=== PATIENT | male | born 1950 ===

== ENCOUNTER 2016-07-14 11:45 | Outpatient (CLI) | payer MEDICARE, OTHER ==
[~2016-07-14] VITALS: Ht 177.8 cm; Wt 96.4 kg
--- NOTE | ~2016-07-14 | HEMODYNAMI ---
PATIENT:SALLY DIETZ MEDICAL RECORD: [id number] : 48 LOCATION:D.CAT ADMISSION DATE: 07/14/16 Generatedon:07/14/201613:58 Patient name: SALLY DIETZ Patient #: [id number] SSN: : 1950 Date of study: 07/14/2016 Page: Of Hemodynamic Procedure Report Patient Data Patient Demographics Procedure consent was obtained First Name: SALLY Gender: Male Last Name: J LUIS : 1950 Middle Initial: M Age: 65 year(s) Patient #: [id number] Race: Unknown Additional ID: [id number] Contact details [address]: [address] [place] [address] State: [place] City: [place] Zip code: [address] Past Medical History Allergies Allergen Reaction Date Comments Reported Codeine 07/14/2016 Admission Admission Data Admission Date: 07/14/2016 Admission Time: 11:45 Lab Results Lab Result Date: 07/14/2016 Lab Result Time: 0:00 Biochemistry Name Units Result Min Max Creatinine mg/dl 1.2 --(---*)-- 0.6 1.3 CBC Name Units Result Min Max Hemoglobin g/dl 15.5 --(-*--)-- 13.5 17.5 Procedure Procedure Types Cath Procedure Diagnostic Procedure [facility] w/Coronaries Miscellaneous Procedures Moderate Sedation up to 15 minutes Procedure Description Procedure Date Procedure Date: 07/14/2016 Procedure Start Time: 13:48 Procedure End Time: 13:58 Procedure Staff Name Function Jose Spencer MD Performing Physician Kyle Pyle RT Scrub Serafin Gannon RN Nurse Jovita Diop RT Monitor Procedure Data Cath Procedure Fluoroscopy Diagnostic fluoroscopy Total fluoroscopy Time: 1.8 time: 1.8 min min Diagnostic fluoroscopy Total fluoroscopy dose: 487 dose: 487 mGy mGy Contrast Material Contrast Material Type Amount (ml) Isovue 300 72 Entry Location Entry Primary Successful Side Size Upsize Upsize Entry Closure Succes sful Closure Location (Fr) 1 (Fr) 2 (Fr) Remarks Device Remarks Femoral Right 5 Fr Exoseal artery Estimated blood loss: 5 ml Diagnostic catheters Device Type Used For End Catheter Placement Cordis 5Fr JL 4.0 Left Coronary Catheter (MP) Angiography Cordis 5Fr 3DRC Catheter Right Coronary (MP) Angiography Cordis 5Fr Pigtail LV Angiography Catheter (MP) Procedure Complications No complications Procedure Medications Medication Administration Route Dosage Oxygen NC 2 l/min Heparin Flush Bag added to field 2 bags (1000units/500ml NS) 0.9% NaCl I.V. 100 ml/hr Fentanyl I.V. 50 mcg Versed I.V. 1 mg Fentanyl I.V. 50 mcg Versed I.V. 1 mg Hemodynamics Rest HGB: 15.5 (g/dl) Heart Rate: 82 (bpm) Pressure Samples Time Site Value (mmHg) Purpose Heart Use Rate(bpm) 13:53 LV 130/-8,14 EDP 61 13:54 LV 124/5,12 EDP 79 Gradients Valve Time Site Site Mean SEP/DFP Peak To Heart Use 1 2 (mmHg) (sec/min) Peak Rate (mmHg) (bpm) Aortic 13:54 LV AO 74 Snapshots Pre Cath Intra NCS Post Cath Vital Signs Time Heart Resp SPO2 etCO2 UP1iyxq NIBP (mmHg) Rhythm Pain Sedation Rate (ipm) (%) (mmHg) (mmHg) Status Level (bpm) 13:37:24 78 17 95 0 0 136/79(111) NSR 0 (11) 10(A) , No pain 13:41:38 79 16 93 0 0 130/75(101) NSR 0 (11) 10(A) , No pain 13:45:47 77 18 95 0 0 131/77(106) NSR 0 (11) 10(A) , No pain 13:49:59 75 16 94 0 0 133/77(115) NSR 0 (11) 9(A) , No pain 13:54:11 77 17 94 0 0 121/72(99) NSR 0 (11) 9(A) , No pain 13:56:57 76 16 96 0 0 123/67(99) NSR 0 (11) 9(A) , No pain Medications Time Medication Route Dose Verified Delivered Reason Notes Effec tiveness by by 13:40:59 Oxygen NC 2 Serafin Serafin Per l/min Jagdeep Gannon RN physician RN 13:41:07 Heparin Flush added 2 Serafin Serafin used for Bag to bags Jagdeep Gannon RN procedure (1000units/500ml field RN NS) 13:41:18 0.9% NaCl I.V. 100 Serafin Serafin Per ml/hr Jagdeep Gannon RN physician RN 13:44:38 Fentanyl I.V. 50 Serafin Serafin for [facility] [place] Jagdeep Gannon RN sedation RN 13:44:47 Versed I.V. 1 mg Serafin Serafin for Jagdeep Gannon RN sedation RN 13:47:06 Fentanyl I.V. 50 Serafin Serafin for [facility] [place] Jagdeep Gannon RN sedation RN 13:47:09 Versed I.V. 1 mg Serafin Serafin for Jagdeep Gannon RN sedation tile mason Log Time Note 13:15:48 Serafin Gannon RN sent for patient. Start room use. 13:25:49 Time tracking: Regular hours 13:25:54 Plan of Care:Hemodynamics will remain stable., Cardiac rhythm will remain stable., Comfort level will be maintained., Respiratory function will remain adequate., Patient/ family verbilizes understanding of procedure., Procedure tolerated without complication., Recovers from procedure without complications.. 13:30:07 Patient received from Pre/Post Procedure Room to [facility] 1 Alert and oriented. Tansferred to table in Supine position. 13:30:08 Warm blankets applied, and tomasa hugger turned on for patient comfort. 13:30:08 Correct patient and procedure confirmed by team. 13:30:09 Signed procedure consent form obtained from patient. 13:30:10 ECG and BP/O2 sat monitors applied to patient. 13:30:11 Full Disclosure recording started 13:36:19 Vital chart was started 13:38:58 Baseline sample Acquired. 13:39:01 Rhythm: sinus rhythm 13:39:17 H&P Date Dictated: 06/22/2016 Within 30 days and on chart., H&P Addendum completed by physician on day of procedure. (MUST COMPLETE FOR ALL OUTPATIENTS). 13:39:18 Pre-procedure instructions explained to patient. 13:39:18 Pre-op teaching completed and patient verbalized understanding. 13:39:19 Family in waiting room. 13:39:21 Patient NPO since Midnight. 13:39:34 Patient allergic to Codeine 13:39:37 Is the patient allergic to Iodine/contrast media? No. 13:39:40 Is patient on blood thinner?No 13:39:42 Patient diabetic? Yes. 13:39:53 If diabetic: On Metformin? Yes 13:39:56 If on Metformin: Last Dose? 07/13/2016 13:39:59 Previous problem with sedation/anesthesia? No ? 13:40:01 Snore? Yes 13:40:02 Sleep apnea? No 13:40:03 Deviated septum? No 13:40:08 Opens mouth fully? Yes 13:40:09 Sticks out tongue? Yes 13:40:16 Airway obstruction? No ? 13:40:20 Dentures? Yes In 13:40:40 Pre procedure: right dorsailis pedis pulse 2+ Normal; easily identifiable; not easily obliterated 13:40:45 Patient pain scale 0/10 ?. 13:40:51 IV patent on arrival in left hand with 0.9% NaCl at KVO. 13:40:59 Oxygen 2 l/min NC was administered by Serafin Gannon RN; Per physician; 13:41:07 Heparin Flush Bag (1000units/500ml NS) 2 bags added to field was administered by Serafin Gannon RN; used for procedure; 13:41:13 Lab Result : Hemoglobin 15.5 g/dl 13:41:13 Lab Result : Creatinine 1.2 mg/dl 13:41:17 Lab results completed and on chart. 13:41:18 0.9% NaCl 100 ml/hr I.V. was administered by Serafin Gannon RN; Per physician; 13:41:21 Right groin area was prepped with chlora-prep and draped in sterile fashion 13:41:23 Alarms reviewed by R. N. 13:41:23 Sharps counted by scrub and verified by R.N. 13:41:58 Use device set Femoral Dx 13:41:59 Acist Syringe opened to sterile field. 13:41:59 Bag Decanter opened to sterile field. 13:42:00 Medline Cath Pack opened to sterile field. 13:42:00 Terumo 5Fr [place] Sheath opened to sterile field. 13:42:01 St Gibran 260cm J .035 wire opened to sterile field. 13:42:02 Acist Hand Control opened to sterile field. 13:42:02 Acist Manifold opened to sterile field. 13:42:03 Diagnostic Infinity 5Fr Multipack catheter opened to sterile field. 13:42:03 Tegaderm 4 x 4 opened to sterile field. 13:43:36 Final Timeout: patient, procedure, and site verified with staff and physician. All members of the team are in agreement. 13:43:39 Right groin site verified by team. 13:43:42 Physical assessment completed. ASA score P 2 - A patient with mild systemic disease as per Jose Spencer MD. 13:43:46 Sedation plan: IV Moderate Sedation Versed, Fentanyl 13:44:38 Fentanyl 50 mcg I.V. was administered by Serafin Gannon RN; for sedation; 13:44:47 Versed 1 mg I.V. was administered by Serafin Gannon RN; for sedation; 13:47:06 Fentanyl 50 mcg I.V. was administered by Serafin Gannon RN; for sedation; 13:47:09 Versed 1 mg I.V. was administered by Serafin Gannon RN; for sedation; 13:48:14 Procedure started. 13:48:17 Local anesthetic to right femoral artery with Lidocaine 2% by Jose Spencer MD.INITIAL ACCESS ONLY 13:48:18 Zero performed for pressure channel P1 13:48:29 A 5 Fr sheath was inserted into the Right Femoral artery 13:48:50 A Cordis 5Fr JL 4.0 Catheter (MP) was advanced over the wire and used for Left Coronary Angiography. 13:50:32 Catheter removed. 13:51:43 A Cordis 5Fr 3DRC Catheter (MP) was advanced over the wire and used for Right Coronary Angiography. 13:51:56 Catheter removed. 13:52:10 A Cordis 5Fr Pigtail Catheter (MP) was advanced over the wire and used for LV Angiography. 13:53:18 LV gram done using LOPEZ 13:53:45 LV hemodynamics recorded. 13:53:47 Injector settings: Ml/sec: 10, Volume: 20, 13:53:57 EF : 55 % 13:54:35 Catheter removed. 13:54:43 Sheath removed intact; hemostasis achieved with Exoseal to the Right Femoral artery. 13:54:45 Procedure ended.(Physican Out) 13:54:56 Fluoroscopy time 01.80 minutes. 13:55:00 Fluoroscopy dose: 487 mGy 13:55:00 Flurop Dose total: 487 13:55:08 Contrast amount:Isovue 300 72ml. 13:55:10 Sharps counted by scrub and verified by R.N. 13:55:13 Insertion/operative site no bleeding no hematoma. 13:55:15 Post-op/insertion site Right Femoral artery dressed using a 4 x 4 and Tegaderm. 13:55:19 Post right femoral artery:stable, clean and dry 13:55:21 Post Procedure Pulses reassessed and unchanged 13:55:24 Post-procedure physical assessment completed. ASA score P 2 - A patient with mild systemic disease as per Jose Spencer MD. 13:55:26 Post procedure rhythm: unchanged. 13:55:29 Estimated blood loss: 5 ml 13:55:31 Post procedure instruction explained to patient.Patient verbalizes understanding. 13:55:31 Patient needs reinforcement of post procedure teaching. 13:55:45 Procedure type changed to Cath procedure, Diagnostic procedure, LHC, LHC w/Coronaries, Miscellaneous Procedures, Moderate Sedation up to 15 minutes 13:55:52 Procedure Complication : No complications 13:55:54 See physician's report for complete and final results. 13:56:13 Cordis 5Fr Exoseal opened to sterile field. 13:56:27 Procedure and supply charges have been captured, reviewed, submitted and are correct. 13:57:57 Vital chart was stopped 13:57:59 Report given to Pre/Post Procedure Room. 13:58:02 Patient transfered to Pre/Post Procedure Room with Stretcher. 13:58:13 Procedure ended. 13:58:13 Full Disclosure recording stopped 13:58:16 End room use (Document Last) Device Usage Item Name Manufacture Quantity Catalog Hospital Part Current Minimal Lo t# / Number Charge Number Stock Stock Serial# Code Acist Acist 1 [id number] [id number] [id number] 20 Syringe [employer] Bag Microtek 1 2002S 023018 31093 105136 5 Decanter [employer] Medline Cardinal 1 [id number] 475209 62724 477305 5 Cath [employer] Terumo 5Fr Terumo 1 [id number] 820270 919808 513848 [address] St Gibran 1 846802 459178 765764 068666 30 260cm J .035 wire Acist Hand Acist 1 20521 924340 006930 252965 5 Control [employer] Inc Acist Acist 1 34837 570156 589289 542555 5 Manifold [employer] Inc Diagnostic Cardinal 1 [id number] 492733 54658 285136 30 Inf[employer] 5Fr Multipack catheter Tegaderm 4 3M 1 1626W 598881 652914 811666 5 x 4 Cordis 5Fr Cardinal 1 686134 5 JL 4.0 Health Catheter (MP) Cordis 5Fr Cardinal 1 741084 5 3DRC Health Catheter (MP) Cordis 5Fr Cardinal 1 [id number] 5 Pigtail Health Catheter (MP) Cordis 5Fr Cardinal 1 EX500 393529 289938 112020 10 [employer] Signature Audit Bryan Stage Time Signature Unsigned Intra-Procedure 07/14/2016 Jovita 1:58:30 PM Counts RT(R) Signatures Monitor : Jovita Signature : Counts RT Date : Time : [address] [address]
[~2016-07-14 11:45] MED LIST: DIOVAN320 MG PO; GLIMEPIRIDE2 MG PO; MYSOLINE 50 MG50 MG PO; NORVASC10 MG PO; PROPRANOLOL HCL60 M1 PO
[2016-07-14] MEDS ORDERED: HYDROCHLOROTH12.5 M1 PO (12:16)
[2016-07-14] MEDS ORDERED: GLUCOPHAGE1000 MG PO (12:16)
[2016-07-14 12:23] VITALS: BP 138/77; Ht 177.8 cm; Wt 96.4 kg
[2016-07-14 12:34] LABS: BASOPHILS 0.2 % (0-2); EOSINOPHILS 4.1 % (0-7); HEMATOCRIT 44.9 % (42.0-54.0); HEMOGLOBIN 15.5 g/dL (13.5-17.5); IMMATURE GRANULOCYTES 0.2 % (0-5); LYMPHOCYTES 27.4 % (15-50); MCH 31.7 pg (26.0-34.0); MCHC 34.5 g/dL (31.0-37.0); MCV 91.8 fL (80.0-100.0); MONOCYTES 7.3 % (2-11); NEUTROPHILS 60.8 % (40-80); PLATELET COUNT 153 10x3/uL (130-400); RBC 4.89 10x6/uL (4.20-6.10); RDW 12.5 % (11.5-14.5); WBC 5.9 10x3/uL (4.8-10.8)
[2016-07-14 12:48] LABS: ANION GAP 12.8 mmol/L (8-16); CALCIUM 8.9 mg/dL (8.5-10.1); CARBON DIOXIDE 26.9 mmol/L (21.0-32.0); CREATININE - SERUM 1.2 mg/dL (0.6-1.3); POTASSIUM - SERUM 3.7 mmol/L (3.5-5.1)
--- NOTE | 2016-07-14 14:35 | NUR ---
1410 RECIEVED TO ROOM VIA STRETCHER FROM TEAR DOWN MATCHER TEAM WITH 5 FR EXOSEAL R/GROIN CDI NO BLEEDING NO HEMATOMA NOTED. VSS WITH CHEST PAIN DENIED WILL MONITOR 1430 R/GROIN CDI NO BLEEDING NO HEMATOMA NOTED. PULSES PRESENT AND MARKED. INSTRUCTED PATIENT TO KEEP HEAD FLAT ON PILLOW WITH RLE STRAIGHT.
--- NOTE | 2016-07-14 14:49 | NUR ---
1441 RIGHT GROIN CDI, NO HEMATOMA OR BLEEDING NOTED, AT SIDE
--- NOTE | 2016-07-14 15:50 | NUR ---
1550-IV D'C WITH CATH TIP INTACT, WRITTEN AND VERBAL INSTRUCTIONS GIVEN TO PT, DENIES FURTHUR NEEDS, HOME WITH FAMILY
--- NOTE | 2016-07-15 08:26 | OP ---
PATIENT NAME: SALLY DIETZ MEDICAL RECORD: [id number] :48 LOCATION:D.CAT ADMISSION DATE: SURGEON: JORDON SAINI MD DATE OF OPERATION: 07/14/2016 PROCEDURES: Left heart catheterization, selective coronary angiography, right femoral artery approach. CATHETERS: A 5-Maltese sheath, 5/4 left and right Derrick, 5/4 pig. The procedure was well tolerated and the patient was returned to [facility], sheath removed. ExoSeal device was placed. FINDINGS: Left ventriculography in 30-degree LOPEZ view: Normal wall motion, normal systolic function. CORONARY ANATOMY: Left main: Left main is free of disease. LAD: Widely patent and area of previous stenting is widely patent, no progression of [place] disease. CIRCUMFLEX: Free of disease. RIGHT CORONARY ARTERY: Minimal irregularities, no flow obstructive disease. IMPRESSION: No evidence of restenosis. No progression of [place] disease. Normal systolic function. TRANSINT:[id number] Voice Confirmation ID: [id number] DOCUMENT ID: [id number] JORDON SAINI MD at 0826 CC: [id number] DICTATION DATE: 07/14/16 1400 TRAFFIC RATE CLERK: 07/14/16 2256 DEP CLI 07/14/16 [id number] [place] [address]
== END 2016-07-14 16:10 | disposition home or self-care (01) ==
LOC: D.CATH 11:45
PROVIDERS: Internal Medicine Interventional Cardiology
DX: I20.9 Angina pectoris, unspecified (principal); R06.00 Dyspnea, unspecified; I10 Essential (primary) hypertension; R94.30 Abnormal result of cardiovascular function study, unspecified; Z01.812 Encounter for preprocedural laboratory examination

== ENCOUNTER 2018-08-18 18:14 | Observation (INO) | payer MEDICARE, OTHER ==
[~2018-08-18] VITALS: Ht 177.8 cm; Wt 93.2 kg
--- NOTE | ~2018-08-18 | HEMODYNAMI ---
PATIENT:SALLY DIETZ MEDICAL RECORD: [id number] : 48 [facility] ADMISSION DATE: 08/18/18 Generatedon:08/20/201811:14 Patient name: SALLY DIETZ Patient #: [id number] SSN: : 1950 Date of study: 08/20/2018 Page: Of Hemodynamic Procedure Report Patient Data Patient Demographics Procedure consent was obtained First Name: SALLY Gender: Male Last Name: J LUIS : 1950 Middle Initial: M Age: 67 year(s) Patient #: [id number] Race: Unknown Additional ID: [id number] Contact details [address]: [address] [place] [address] State: [place] City: [place] Zip code: [address] Past Medical History Allergies Allergen Reaction Date Comments Reported Codeine 07/14/2016 Codeine 08/20/2018 Admission Admission Data Admission Date: 08/18/2018 Admission Time: 21:05 Admit Source: Emergency department Room #: D.2103 Lab Results Lab Result Date: 08/20/2018 Lab Result Time: 0:00 Biochemistry Name Units Result Min Max BUN mg/dl 18 --(---*)-- 7 18 Creatinine mg/dl 1.1 --(--*-)-- 0.6 1.3 CBC Name Units Result Min Max Hematocrit % 44.5 --(*---)-- 42 54 Hemoglobin g/dl 16.3 --(--*-)-- 13.5 17.5 Procedure Procedure Types Cath Procedure Diagnostic Procedure LHC LHC w/Coronaries FFR/IVUS FFR Initial Sedation Charges Moderate Sedation up to 15 minutes PCI Procedure Coronary Stent Coronary Stent Initial Procedure Description Procedure Date Procedure Date: 08/20/2018 Procedure Start Time: 10:49 Procedure End Time: 11:07 Procedure Staff Name Function Keagan Carey MD Performing Physician Trini Villanueva RT Monitor Kyle Pyle RT Scrub Adeel Tipton RT Machine Sign Writer Serafin Gannon RN Nurse Procedure Data Cath Procedure Fluoroscopy Diagnostic fluoroscopy Total fluoroscopy Time: 2.8 time: 2.8 min min Diagnostic fluoroscopy Total fluoroscopy dose: dose: 1059 mGy 1059 mGy Contrast Material Contrast Material Type Amount (ml) Isovue 300 110 Entry Location Entry Primary Successful Side Size Upsize Upsize Entry Closure Succes sful Closure Location (Fr) 1 (Fr) 2 (Fr) Remarks Device Remarks Femoral Right 5 Fr 6 Fr Exoseal artery Short Estimated blood loss: 10 ml Diagnostic catheters Device Type Used For End Catheter Placement MULTIPACK Pigtail 5 Fr Procedure catheter MULTIPACK JL 4.0 5Fr Procedure catheter MULTIPACK 3DRC 5Fr Procedure catheter Procedure Complications No complications Procedure Medications Medication Administration Route Dosage Oxygen etCO2 Nasal cannula 2 l/min Heparin Flush Bag added to field 2 bags (1000units/500ml NS) 0.9% NaCl I.V. ml/hr Lidocaine 2% added to field 20 Fentanyl I.V. 50 mcg Versed I.V. 1 mg Fentanyl I.V. 50 mcg Versed I.V. 1 mg Heparin Bolus I.V. 4000 units Integrilin (Bolus I.V. 8.5 ml 2mg/ml) Integrilin (Bolus wasted 1.5 ml 2mg/ml) Plavix P.O. 600 mg Hemodynamics Rest HGB: 16.3 (g/dl) Heart Rate: 59 (bpm) Snapshots Pre Cath Intra NCS Post Cath Vital Signs Time Heart Resp SPO2 etCO2 NIBP (mmHg) Rhythm Pain Sedation Rate (ipm) (%) (mmHg) Status Level (bpm) 10:37:53 65 17 93 0 132/72(100) NSR 0 (11) 10(A) , No pain 10:42:09 66 16 95 0 136/77(112) NSR 0 (11) 10(A) , No pain 10:46:27 67 17 96 32.9 132/76(118) NSR 0 (11) 10(A) , No pain 10:50:41 55 16 93 26.1 122/77(94) NSR 0 (11) 9(A) , No pain 10:55:44 73 17 93 42.6 159/92(134) NSR 0 (11) 9(A) , No pain 10:59:58 74 17 93 44.1 143/81(118) NSR 0 (11) 9(A) , No pain 11:04:18 75 17 94 42.6 142/71(120) NSR 0 (11) 9(A) , No pain 11:07:43 75 16 94 41.8 141/73(106) NSR 0 (11) 9(A) , No pain Medications Time Medication Route Dose Verified Delivered Reason Notes Effectiveness by by 10:42:08 Oxygen etCO2 2 Keagan Betancourt Per physician Nasal l/min Aurelio Gannon RN cannula 10:42:15 Heparin Flush added 2 Keagan Betancourt used for Bag to bags Aurelio Gannon RN procedure (1000units/500ml field NS) 10:42:23 0.9% NaCl I.V. ml/hr Keagan Betancourt Per physician Aurelio Gannon RN 10:43:18 Lidocaine 2% added 20ml Keagan Betancourt for local to vial Aurelio Gannon RN anesthetic field 10:49:23 Fentanyl I.V. 50 Keagan Wreny for sedation mcg Aurelio Gannon RN 10:49:30 Versed I.V. 1 mg Keagan Betancourt for sedation Aurelio Gannon RN 10:54:12 Fentanyl I.V. 50 Keagan Betancourt for sedation mcg Aurelio Gannon RN 10:54:20 Versed I.V. 1 mg Keagan Betancourt for sedation Aurelio Gannon RN 11:02:09 Heparin Bolus I.V. 4000 Keagan Betancourt for units Aurelio Gannon RN anticoagulation 11:02:20 Integrilin I.V. 8.5 Keagan Betancourt for (Bolus 2mg/ml) ml Aurelio Gannon RN antiplatelet therapy 11:02:25 Integrilin wasted 1.5 Keagan Betancourt for (Bolus 2mg/ml) ml Aurelio Gannon RN antiplatelet therapy 11:07:16 Plavix P.O. 600 Keagan Betancourt for mg Aurelio Gannon RN antiplatelet therapy Procedure Log Time Note 10:10:29 Adeel AVITIA(R) (CV) sent for patient. Start room use. 10:30:06 Informed consent obtained and on chart 10:30:10 Admit Source: Emergency department 10:30:28 Diagnostic Cath status Urgent 10:30:35 Time tracking: Regular hours (M-F 7:00 - 5:00) 10:30:38 Plan of Care:Hemodynamics will remain stable., Cardiac rhythm will remain stable., Comfort level will be maintained., Respiratory function will remain adequate., Patient/ family verbilizes understanding of procedure., Procedure tolerated without complication., Recovers from procedure without complications.. 10:30:43 Patient received from Med II to CCL 1 Alert and oriented. Tansferred to table in Supine position. 10:30:44 Warm blankets applied, and tomasa hugger turned on for patient comfort. 10:30:44 Correct patient and procedure confirmed by team. 10:30:45 ECG and BP/O2 sat monitors applied to patient. 10:30:45 Pre-procedure instructions explained to patient. 10:30:46 Pre-op teaching completed and patient verbalized understanding. 10:30:56 H&P Date Dictated: 08/18/2018 Within 30 days and on chart.. 10:30:58 Family in patients room. 10:31:00 Patient NPO since Midnight. 10:36:46 Vital chart was started 10:40:56 Patient allergic to Codeine 10:40:59 Baseline sample Acquired. 10:41:03 Rhythm: sinus bradycardia 10:41:04 Full Disclosure recording started 10:41:09 Is patient on blood thinner?Yes 10:41:22 PATIENT GIVEN 75MG PLAVIX MONDAY 10:41:24 Patient diabetic? Yes. 10:41:26 If diabetic: On Metformin? Yes 10:41:28 If on Metformin: Last Dose? 08/19/2018 10:41:30 Previous problem with sedation/anesthesia? No ? 10:41:32 Snore? Yes 10:41:33 Sleep apnea? No 10:41:34 Deviated septum? No 10:41:35 Opens mouth fully? Yes 10:41:40 Sticks out tongue? Yes 10:41:41 Airway obstruction? No ? 10:41:44 Dentures? No ? 10:41:46 Pre procedure: right dorsailis pedis pulse 2+ Normal; easily identifiable; not easily obliterated 10:41:53 Patient pain scale 0/10 ?. 10:41:58 IV patent on arrival in left forearm with 0.9% NaCl at KVO. 10:42:08 Oxygen 2 l/min etCO2 Nasal cannula was administered by Serafin Gannon RN; Per physician; 10:42:15 Heparin Flush Bag (1000units/500ml NS) 2 bags added to field was administered by Serafin Gannon RN; used for procedure; 10:42:23 0.9% NaCl ml/hr I.V. was administered by Serafin Gannon RN; Per physician; 10:42:30 Lab Result : BUN 18 mg/dl 10:42:30 Lab Result : Hemoglobin 16.3 g/dl 10:42:30 Lab Result : Creatinine 1.1 mg/dl 10:42:30 Lab Result : Hematocrit 44.5 % 10:42:33 Lab results completed and on chart. 10:42:36 Right groin area was prepped with chlora-prep and draped in sterile fashion 10:42:37 Alarms reviewed by R. N. 10:42:37 Sharps counted by scrub and verified by R.N. 10:42:41 Use device set Femoral Dx 10:42:42 ACIST Syringe (85992) opened to sterile field. 10:42:42 Bag Decanter (2002S) opened to sterile field. 10:42:44 ACIST Hand Control (36324) opened to sterile field. 10:42:45 ACIST Manifold (49016) opened to sterile field. 10:42:46 Tegaderm 4 x 4 (1626W) opened to sterile field. 10:42:47 Medline Cath Pack ([id number]) opened to sterile field. 10:42:47 DIAGNOSTIC WIRE .035 260cm J wire (084449) opened to sterile field. 10:42:48 DIAGNOSTIC Multipack 5Fr catheter set ([id number]) opened to sterile field. 10:42:51 SHEATH 5FR [place] (LPY306) opened to sterile field. 10:43:18 Lidocaine 2% 20ml vial added to field was administered by Serafin Gannon RN; for local anesthetic; 10:47:22 Zero performed for pressure channel P1 10:47:30 --------ALL STOP TIME OUT------ 10:47:31 Final Timeout: patient, procedure, and site verified with staff and physician. All members of the team are in agreement. 10:47:33 Right groin site verified by team. 10:47:35 Maximum allowable Isovue 300 dose 300ml. Physician notified. (300ml for normal creatinines. For patients with creatinine of 1.7 or higher multiply weight(kg) x 5 divided by creatinine.) 10:47:39 Fire Safety Assessment: A--An alcohol-based skin anteseptic being used preoperatively., C--Open oxygen or nitrous oxide is being used., D--An ESU, laser, or fiber-optic light is being used. 10:47:41 Physical assessment completed. ASA score P 2 - A patient with mild systemic disease as per Keagan Carey MD. 10:47:44 Sedation plan: IV Moderate Sedation Medication:Versed, Fentanyl 10:49:07 Procedure started. 10:49:23 Fentanyl 50 mcg I.V. was administered by Serafin Gannon RN; for sedation; 10:49:23 Local anesthetic to right femoral artery with Lidocaine 2% by Keagan Carey MD.INITIAL ACCESS ONLY 10:49:30 Versed 1 mg I.V. was administered by Serafin Gannon RN; for sedation; 10:49:33 A 5 Fr sheath was inserted into the Right Femoral artery 10:50:07 A MULTIPACK Pigtail 5 Fr catheter was advanced over the wire and used for Procedure. 10:50:09 LV gram done using LOPEZ 10:50:12 Injector settings: Ml/sec: 10, Volume: 20, 10:50:46 EF : 60 % 10:50:47 Catheter removed. 10:50:57 A MULTIPACK JL 4.0 5Fr catheter was advanced over the wire and used for Procedure. 10:51:50 LCA angiography performed. 10:52:10 Catheter removed. 10:52:33 A MULTIPACK 3DRC 5Fr catheter was advanced over the wire and used for Procedure. 10:53:18 RCA angiography performed. 10:53:21 Catheter removed. 10:53:34 SHEATH 6FR [place] (KXF507) opened to sterile field. 10:53:34 [place] Verrata Plus pressure wire (16707Q) opened to sterile field. 10:53:38 INFLATOR Merit BasixCompak (IY9621) opened to sterile field. 10:53:45 GUIDE 6FR XBLAD 3.5 catheter ([id number]) opened to sterile field. 10:54:11 Sheath upsized to a 6 Fr Short. 10:54:12 Fentanyl 50 mcg I.V. was administered by Serafin Gannon RN; for sedation; 10:54:20 Versed 1 mg I.V. was administered by Serafin Gannon RN; for sedation; 10:55:06 6 Fr XBLAD 3.5 guide catheter was inserted over the wire 10:55:56 FFR/IFR wire advanced. 10:56:53 LAD lesion measured at .87 with IFR 11:02:09 Heparin Bolus 4000 units I.V. was administered by Serafin Gannon RN; for anticoagulation; 11:02:18 Place stent Inflation Number: 1 A MARGOT RX 2.25 x 22 stent ([id number]) was prepped and advanced across the Mid LAD 70. The stent was deployed at 13 JADE for 0:10 (min:sec) 0. 11:02:20 Integrilin (Bolus 2mg/ml) 8.5 ml I.V. was administered by Serafin Gannon RN; for antiplatelet therapy; 11:02:25 Integrilin (Bolus 2mg/ml) 1.5 ml wasted was administered by Serafin Gannon RN; for antiplatelet therapy; 11:03:00 EXOSEAL 6Fr (EX600) opened to sterile field. 11:03:04 Stent catheter was removed intact over wire. 11:03:05 Wire removed. 11:03:07 Guide catheter removed. 11:03:15 Sheath removed intact; hemostasis achieved with Exoseal to the Right Femoral artery. 11:03:19 Procedure ended.(Physican Out) 11:05:07 Fluoroscopy time 02.80 minutes. 11:05:13 Fluoroscopy dose: 1059 mGy 11:05:13 Flurop Dose total: 1059 11:05:17 Contrast amount:Isovue 300 110ml. 11:05:25 Sharps counted by scrub and verified by R.N. 11:05:29 Post-op/insertion site Right Femoral artery dressed using a 4 x 4 and Tegaderm. 11:05:32 Post-procedure physical assessment completed. ASA score P 2 - A patient with mild systemic disease as per Keagan Carey MD. 11:05:34 Post procedure rhythm: sinus rhythm 11:05:36 Estimated blood loss: 10 ml 11:05:37 Post procedure instruction explained to patient.Patient verbalizes understanding. 11:05:38 Patient needs reinforcement of post procedure teaching. 11:06:00 Procedure type changed to Cath procedure, Diagnostic procedure, LHC, LHC w/Coronaries, FFR/IVUS, FFR Initial, Sedation Charges, Moderate Sedation up to 15 minutes, PCI procedure, Coronary Stent, Coronary Stent Initial 11:07:16 Plavix 600 mg P.O. was administered by Serafin Gannon RN; for antiplatelet therapy; 11:07:44 Procedure and supply charges have been captured, reviewed, submitted and are correct. 11:07:46 Procedure Complication : No complications 11:07:48 Vital chart was stopped 11:07:48 See physician's report for complete and final results. 11:07:49 Report given to Pre/Post Procedure Room. 11:07:51 Patient transfered to Pre/Post Procedure Room with Bed. 11:07:53 Procedure ended. 11:07:53 Full Disclosure recording stopped 11:07:56 End room use (Document Last) Intervention Summary Intervention Notes Time ActionType Lesion and Equipment Used Action# Pressure Duration Attributes 11:02:18 Place stent Mid LAD MARGOT RX 2.25 x 1 13 00:10 22 stent ([id number]) Device Usage Item Name Manufacture Quantity Catalog Hospital Part Current Minimal Lot# / Number Charge Number Stock Stock Serial# Code ACIST Syringe Acist 1 19029 416383 253650 455603 20 (76506) Medical Systems Inc Bag Decanter Microtek 1 2001S 510851 50843 626255 5 (2001S) Medical Inc. ACIST Hand Acist 1 25399 236449 399481 207747 5 Control Medical (86705) Systems Inc ACIST Manifold Acist 1 55763 814236 670970 398480 5 (02115) Medical Systems Inc Tegaderm 4 x 4 3M 1 1626W 045939 176303 861181 5 (1626W) Medline Cath Medline 1 [id number] 830288 41026 222953 5 Pack ([id number]) DIAGNOSTIC [place] 1 799421 700904 401669 921613 30 WIRE .035 260cm J wire (296083) DIAGNOSTIC Cardinal 1 TO6869 919413 69182 608232 30 Multipack 5Fr Health catheter set (FI8294) SHEATH 5FR Terumo 1 RKC779 205374 387512 543304 5 [place] (ULG071) MULTIPACK Cardinal 1 955461 5 Pigtail 5 Fr Health catheter MULTIPACK JL Cardinal 1 599680 5 4.0 5Fr Health catheter MULTIPACK 3DRC Cardinal 1 082457 5 5Fr catheter Health SHEATH 6FR Terumo 1 CDF937 348467 483362 275018 40 [place] (GOZ498) [place] 1 93050W 237488 439697818 774700 5 Verrata Plus pressure wire (63506M) INFLATOR Merit Merit 1 BQ9245 888130 505955 104158 15 [facility] Medical (LM8622) GUIDE 6FR Cardinal 1 [id number] 954946 304864 594368 10 XBLAD 3.5 Health catheter ([id number]) MARGOT RX 2.25 x Medtronic 1 [id number] 263946 9048578 663016 5 [id number] 22 stent ([id number]) EXOSEAL 6Fr Cardinal 1 EX600 831534 356501 148132 10 (EX600) Health Signature Audit [place] Stage Time Signature Unsigned Intra-Procedure 08/20/2018 Trini Villanueva 11:14:19 AM RT(R) Signatures Monitor : Trini Villanueva Signature : RT Date : Time : [address] [id number]
[~2018-08-18 18:14] MED LIST changes: +GLUCOPHAGE1000 MG PO; +HYDROCHLOROTH12.5 M1 PO
[2018-08-18 18:48] LABS: BASOPHILS 0.3 % (0-2); EOSINOPHILS 3.8 % (0-7); HEMATOCRIT 44.5 % (42.0-54.0); HEMOGLOBIN 16.3 g/dL (13.5-17.5); IMMATURE GRANULOCYTES 0.3 % (0-5); LYMPHOCYTES 39.8 % (15-50); MCH 32.1 pg (26.0-34.0); MCHC 36.6 g/dL (31.0-37.0); MCV 87.6 fL (80.0-100.0); MEAN PLATELET VOLUME 9.6 fL (7.4-10.4); MONOCYTES 13.6 % (2-11); NEUTROPHILS 42.2 % (40-80); RBC 5.08 10x6/uL (4.20-6.10); RDW 12.3 % (11.5-14.5); WBC 3.7 10x3/uL (4.8-10.8)
[2018-08-18 19:00] LABS: ALBUMIN 4.1 g/dL (3.4-5.0); ALKALINE PHOSPHATASE 68 U/L (46-116); ALT (SGPT) 45 U/L (10-68); BILIRUBIN - TOTAL 0.59 mg/dL (0.2-1.3); CALC OSMOLALITY 277 mosm/kg (275-300); CALCIUM 8.8 mg/dL (8.5-10.1); CARBON DIOXIDE 25.2 mmol/L (21.0-32.0); CHLORIDE - SERUM 101 mmol/L (98-107); CREATININE - SERUM 1.1 mg/dL (0.6-1.3); GLUCOSE 127 mg/dL (74-106); POTASSIUM - SERUM 3.6 mmol/L (3.5-5.1); PROTEIN - SERUM 7.5 g/dL (6.4-8.2); SODIUM 137 mmol/L (136-145); UREA NITROGEN 18 mg/dL (7-18); eGFR NON AFRICAN AMERICAN 71 mL/min (90-120)
--- NOTE | 2018-08-18 19:01 | NUR ---
PT RESTING ON BED, PT FAMILY AT BEDSIDE. PT REPORTS PAIN COMES IN "WAVES". PT DENIES RELIEF FROM NTG ADMINISTERED EARLIER.
[2018-08-18 19:10] VITALS: BP 141/81
[2018-08-18 19:12] LABS: PLATELET COUNT 122 10x3/uL (130-400)
[2018-08-18 19:15] LABS: CKMB 0.6 U/L (0.0-3.6); CREATINE KINASE 103 UL (21-232); MAGNESIUM - SERUM 1.8 mg/dL (1.8-2.4); PRO BNP 24 pg/mL (0-125)
[2018-08-18 19:23] LABS: TROPONIN-I < 0.017 ng/mL (0.000-0.060)
[2018-08-18 20:00] VITALS: BP 151/74
[2018-08-18 20:30] VITALS: BP 160/80
--- NOTE | 2018-08-18 20:30 | NUR ---
PT RESTING ON BED. PT UPDATED ON PLAN OF CARE.
[2018-08-18 21:00] VITALS: BP 154/82
--- NOTE | 2018-08-18 21:27 | NUR ---
PT CONTINUES TO REPORT PAIN INTERMITTENT. PT ALERT, ORIENTED. PT FAMILY AT BEDSIDE.
[2018-08-18 22:26] VITALS: BP 134/64; Ht 177.8 cm; Wt 93.2 kg
--- NOTE | 2018-08-19 00:24 | NUR ---
RECIEVED REPORT FROM ER. ARRIVED TO FLOOR IN W/C. ALERT AND ORIENTED X4. TRANSFERED SELF TO BED.IV TO LEFT FA WITH NS AT 75CC/HR. ASSESSMENTS COMPLETED. DENIES ANY NEEDSD AT THIS TIME.
[2018-08-19 00:29] LABS: CKMB 0.4 U/L (0.0-3.6); CREATINE KINASE 81 UL (21-232); TROPONIN-I < 0.017 ng/mL (0.000-0.060)
[2018-08-19 04:54] LABS: CKMB 0.2 U/L (0.0-3.6); CREATINE KINASE 71 UL (21-232)
[2018-08-19 04:55] LABS: TROPONIN-I < 0.017 ng/mL (0.000-0.060)
[2018-08-19 05:38] VITALS: BP 114/62
--- NOTE | 2018-08-19 06:50 | NUR ---
[facility] IS ALERT WITH AT BEDSIDE. DENIES CHEST PAIN. ONLY C/O WAS WANTING SOME FOOD OR DRINK BUT HE UNDERSTANDS NPO STATUS. DENIES ANY NEEDS AT THIS TIME. CL IN REACH
[2018-08-19 08:31] VITALS: BP 112/64
[2018-08-19 11:56] LABS: CKMB 0.2 U/L (0.0-3.6); CREATINE KINASE 61 UL (21-232)
[2018-08-19 11:57] LABS: TROPONIN-I < 0.017 ng/mL (0.000-0.060)
[2018-08-19 12:06] VITALS: BP 112/58
--- NOTE | 2018-08-19 13:10 | NUR ---
HE WAS TAKEN BACK DOWN TO FINISH MED STRESS TEST AT THIS TIME.
[2018-08-19 15:04] VITALS: BP 116/62
--- NOTE | 2018-08-19 16:10 | NUR ---
HE STATED HIS PAIN IS MORE LIKE TENDER IN THE LEFT SIDE OF HIS UNDERARM. HE DOES NOT WANT ANY PAIN MED AT THIS TIME. IT IS JUST FUNNY DULL PAIN. AT BEDSIDE CL IN REACH. HE STATES HE WILL CALL IF PAIN GETS BAD LIKE LAST NIGHT.
--- NOTE | 2018-08-19 18:00 | NUR ---
IN ROOM WITH AND FAMILY. IV SITE IS CLEAR. ALERT DENIES ANY C/P
--- NOTE | 2018-08-19 19:14 | NUR ---
RECIEVED UP IN BED WITH EYES OPEN AND SPOUSE AT BEDSIDE. UPSET THAT HE DID NOT RECIEVE DINNER TRAY. SANDWICH BOX OFFERED AND REFUSED. ALERT AND ORIENTED X4 AND UP AD DEEPAK. CONTINUES TO REPORT PAIN UNDER RIGHT ARM THAT COMES AND GOES. IV TO LEFT FA WITH NS AT 75ML/HR. TELEMETRY IN PLACE. DENIES ANY NEEDS AT THIS TIME.
[2018-08-19 20:00] VITALS: BP 134/59
--- NOTE | 2018-08-19 22:16 | NUR ---
RECHECKED TEMP AFTER TYLENOL ADMINISTERED AND TEMP 100.6. ROOM IS VERY WARM. SET THERMOSTAT TO 70 AND PUT FAN ON PT. ALSO COOLED HIM WITH COOL WASH CLOTHY. WILL RECHECK HIS TEMP.
[2018-08-20] VITALS: BP 137/65
[2018-08-20 04:00] VITALS: BP 108/52
--- NOTE | 2018-08-20 07:37 | NUR ---
REPORT RECEIVED. WILL CONTINUE WITH POC. PT CURRENTLY LYING SEMI FOWLERS. CALL LIGHT W/I REACH. PT IS RESTING AT THE MOMENT. RR EVEN AND UNLABORED ON RA. NS INFUSING @75ML/HR VIA L.FOR PIV. NO S/S OF DISTRESS NOTED. PT DENIES ANY NEEDS. WILL CTM.
[2018-08-20 09:04] VITALS: BP 124/46
--- NOTE | 2018-08-20 10:23 | NUR ---
PT TAKEN TO VARITYPIST. PREOP MEDICATIONS ADMINISTERED. PT DENIES ANY NEEDS. NO S/S OF DISTRESS NOTED. WILL CTM.
--- NOTE | 2018-08-20 11:16 | HP ---
PATIENT: SALLY NEAL MEDICAL RECORD: [id number] ACCOUNT: [id number] [facility] AD[facility] DATE: 08/18/18 PCP: No PCP HISTORY AND PHYSICAL EXAMINATION ADMITTING DIAGNOSES: 1. Angina. 2. Coronary artery disease. 3. Previous PTCA and stent. 4. Hypertension. 5. Dcp-jztqvzo-epmfbhxiz diabetes. HISTORY OF PRESENT ILLNESS: Mr. Neal presents with chest discomfort increasing over the past week. It is like that of his previous angina. He has a history of coronary artery disease, PTCA and stent of his LAD in 2015. He had a cardiac catheterization in 2017 that showed wide patency of the previously placed stent with no new disease. His EKG is with no abnormalities at this time. PHYSICAL EXAMINATION: GENERAL APPEARANCE: Well-nourished, well-developed, appears stated age. Level of distress, comfortable. PSYCHIATRIC: Mental status, alert, normal affect. Orientation, oriented to time, place and person. EYES: Lids and conjunctiva, noninjected. No discharge, no pallor. ENT: Lips, teeth, gums, normal dentition. Oropharynx, no cyanosis, no pallor. NECK: Carotid arteries, bilateral normal upstroke, no bruits, no thrills. JUGULAR VEINS: No jugular venous pressure or distention. CERVICAL LYMPH NODES: Nontender, nonenlarged. THYROID: Not enlarged. Nontender. No nodules. LUNGS: Respiratory effort, unlabored. CHEST: Normal curvature. No thoracic deformity. No chest wall tenderness. Percussion, resonant. Auscultation, clear. No wheezes, no rales, no rhonchi. CARDIOVASCULAR: Precordial exam, nondisplaced. No heaves or pericardial thrills. Rate and rhythm, regular. Heart sounds, normal S1, normal S2. No S3, no gallop, no rub. Systolic murmur, not heard. Diastolic murmur, not heard. EXTREMITIES: No cyanosis, no edema. Peripheral pulses, full and equal in all extremities, except as noted. No bruits appreciated. ABDOMEN: Soft, nondistended. Normal aorta. No bruit. Nontender. No masses. Liver, nontender, no hepatomegaly. Spleen, nontender, no splenomegaly. MUSCULOSKELETAL: No joint tenderness. No joint swelling. No erythema. NEUROLOGICAL: Normal gait, normal strength, normal tone. SKIN: Warm and dry. OVERALL IMPRESSION: Chest discomfort. No EKG changes. Normal troponin. At this time, we will risk stratify with stress test and Cardiolite imaging. Further care depends on the stress test. TRANSINT:[id number] Voice Confirmation ID: [id number] DOCUMENT ID: [id number] HISTORY AND PHYSICAL [id number] SALLY NEAL JEFFREY MD at 1116 CC: [id number] DICTATION DATE: 08/19/1846 STOCK ANALYST: 08/19/18 1259 ADM IN [facility] [address] [id number]
--- NOTE | 2018-08-20 11:17 | EC ---
PATIENT:SALLY DIETZ DATE OF SERVICE: 08/18/18 SEX: M MEDICAL RECORD: [id number] DATE OF : [birth year] [facility] AGE OF PATIENT: 67 ADMISSION DATE: 08/18/18 REFERRING PHYSICIAN: INTERPRETING PHYSICIAN: KENDAL CAREY MD ECHOCARDIOGRAM REPORT ECHO CHARGES 4 ECHO COMPLETE Date: 08/19/18 CLINICAL DIAGNOSIS: SOB, ANGINA ECHOCARDIOGRAPHIC MEASUREMENTS (adult normal given) AC root (d.<3.7cm) 2.8 cm LV Septum d (<1.2 cm> 1.2 cm Valve Excursion 1.2 cm LV Septum (systole) 1.5 cm Left Atria (s.<4.0cm> 2.7 cm LVPW d(<1.2cm) 1.1 cm RV (d.<2.3cm) 3.3 cm LVPW (sytole) 1.8 cm LV diastole(<5.6CM) 5.5 cm MV E-F(>70mm/sec) cm LV systole 4.1 cm LVOT Diameter 1.9 cm MV exc.(>10mm) cm Est.ejection fraction (50-75%) % DOPPLER: LVIT cm/sec A 100 cm/sec E 59 cm/sec LA cm/sec RVSP 15.1 mmHg LVOT 94 cm/sec AOP1/2T m/s Asc. Ao 136 cm/sec RVOT 56 cm/sec RA cm/sec PA 55 cm/sec AV Gradient Peak 7.4 mmHg AV Mean 3.4 mmHg AV Area 2.9 cm MV Gradient Peak 5.2 mmHg MV Mean 1.7 mmHg MV Area cm COMMENTS: Time Clerk: Cayla TURNER Contact Representative: 1 Dr. Carey TAPE# PACS Pericardial Effusion N DATE OF SERVICE: 08/19/2018 PROCEDURE: Echocardiogram. FINDINGS: 1. Left ventricular chamber size is within normal limits. Left ventricular systolic function is normal. Overall ejection fraction estimated at 55%. 2. Left atrium, right atrium, right ventricle chamber size is within normal limits. 3. Valvular structures have normal structure and motion. ECHOCARDIOGRAM REPORT [id number] SALLY DIETZ 4. Doppler interrogation reveals only mild aortic insufficiency. No other valvular insufficiency or stenosis. 5. No evidence of pericardial effusion or left ventricular thrombus. TRANSINT:[id number] Voice Confirmation ID: [id number] DOCUMENT ID: [id number] KENDAL CAREY MD at 1117 CC: [id number] DICTATION DATE: 08/19/18 1250 RECOATER: 08/19/18 1433 ADM IN [facility] [address] [id number]
--- NOTE | 2018-08-20 11:20 | NUR ---
PATIENT ARRIVED TO ROOM 2, PLACE ON CM AND 2L NC. PATIENT DENIES ANY PAIN, NUMBNESS, OR SHORTNESS OF BREATH. RIGHT GROIN DRESSING IS CDI, NO S/S OF BLEEDING OR HEMATOMA. VSS WILL CONTINUE TO MONITOR.
[2018-08-20] MEDS ORDERED: PLAVIX75 MG PO (11:26)
[2018-08-20] MEDS ORDERED: BAYER CHEWABLE81 MG PO (11:27)
--- NOTE | 2018-08-20 11:35 | NUR ---
PATIENT INTERMITTENTLY RESTING, C/O "INDIGESTION" SPRITE AND CRACKERS GIVEN PER REQUEST, PATIENT DENIES ANY FURTHER INDIGESTION. VSS ON 2L NC. RIGHT GROIN DRESSING IS CDI, NO S/S OF BLEEDING OR HEMATOMA.
--- NOTE | 2018-08-20 11:43 | NUR ---
TAKEN TO PT ROOM ALONG WITH ALL BELONGINGS FROM THE ROOM. TELEMETRY REMOVED AND RETURNED.
--- NOTE | 2018-08-20 12:05 | NUR ---
PATIENT RESTING, VSS ON 2L NC. RIGHT GROIN DRESSING IS CDI, NO S/S OF BLEEDING OR HEMATOMA. NO C/O PAIN, NUMBNESS, OR TINGLING. PHYSICIAN AT BEDSIDE TO UPDATE PATIENT AND SPOUSE.
--- NOTE | 2018-08-20 12:35 | NUR ---
PATIENT RESTING, VSS ON 1L NC. RIGHT GROIN DRESSING IS CDI, NO S/S OF BLEEDING OR HEMATOMA. PATIENT C/O PAIN IN LOWER BACK R/T CHRONIC PAIN AND LAYING FLAT IN BED.
--- NOTE | 2018-08-20 13:05 | NUR ---
PATIENT INTERMITTENTLY RESTING, VSS ON ROOM AIR. RIGHT GROIN DRESSING IS CDI, NO S/S OF BLEEDING OR HEMATOMA. TRAMADOL ORDERED FOR BACK PAIN.
--- NOTE | 2018-08-20 13:35 | NUR ---
TRAMADOL GIVEN ORDERED FOR PAIN, VSS ON ROOM AIR. RIGHT GROIN DRESSING IS CDI, NO S/S OF BLEEDING OR HEMATOMA. NO N/V.
--- NOTE | 2018-08-20 14:05 | NUR ---
PATIENT AWAKE, HEAD OF BED ELEVATED TO 30 DEGREES. RIGHT GROIN DRESSING IS CDI, NO S/S OF BLEEDING OR HEMATOMA. PATIENT STATES THAT BACK PAIN IS "MUCH BETTER". TOLERATING PO FLUIDS AND FOOD, NO N/V.
--- NOTE | 2018-08-20 14:35 | NUR ---
HEAD OF BED AT 90 DEGREES, RIGHT GROIN DRESSING IS CDI, NO S/S OF BLEEDING OR HEMATOMA. VSS ON ROOM AIR. NO C/O PAIN, NUMBNESS, OR TINGLING. IV REMOVED.
--- NOTE | 2018-08-20 15:05 | NUR ---
VERBAL AND WRITTEN DISCHARGE INSTRUCTIONS GIVEN TO PATIENT REGARDING DISCHARGE INFORMATION AND MEDICATION COMPLIANCE. PATIENT VOICES UNDERSTANDING. PATIENT GETTING DRESSED. RIGHT GROIN DRESSING IS CDI, NO S/S OF BLEEDING OR HEMATOMA.
--- NOTE | 2018-08-20 15:10 | NUR ---
PATIENT VOIDED WITHOUT DIFFICULTY. PATIENT TRANSPORTED VIA WHEELCHAIR TO CAR WITH SPOUSE DRIVING.
--- NOTE | 2018-08-22 11:19 | OP ---
PATIENT NAME: SALLY DIETZ MEDICAL RECORD: [id number] :48 LOCATION[facility] ADMISSION DATE:08/18/18 SURGEON: KENDAL COTA MD DATE OF OPERATION: 08/20/2018 PROCEDURES: 1. PTCA stent LAD. 2. IFR. 3. Left heart catheterization. 4. Selective coronary angiography. 5. Left ventriculogram. INDICATION: Angina and coronary artery disease. PROCEDURE IN DETAIL: After informed consent was obtained and after a detailed description of risks, benefits as well as alternative therapies, the patient elected to proceed with angiogram and angioplasty. The right femoral area was prepped and draped in normal sterile fashion. Right femoral artery was cannulated via modified Seldinger technique with placement of 6-Wolof sheath. All catheters exchanged through this sheath. FINDINGS: Left ventriculogram was performed in standard 30-degree LOPEZ view reveals preserved cardiac wall motion, ejection fraction 55% to 60%. SELECTIVE CORONARY ANGIOGRAPHY: 1. Left main has no significant angiographic disease. 2. Left anterior descending has previously placed stents. There are tandem areas of possible stenosis that are not in the stented area. The previously placed stented areas are widely patent. IFR was performed at multiple levels. IFR was 1.01. After the first stented area; however, fell out to 0.87 with the second lesion. It was after the second stented area, hence this was the flow limiting stenosis. The left circumflex has moderate irregularities, but no flow-limiting stenosis, small and diffusely diseased. The right coronary artery has moderate irregularities, but no flow-limiting stenosis. Distal vessel is small and diffusely diseased. MANUFACTURING AREA MANAGER STENT OF THE LAD: The stent used 2.25 x 22 mm Kenneth. Result was 0% residual stenosis. OVERALL IMPRESSION: Successful percutaneous transluminal coronary angioplasty stent of the left anterior descending going from flow limiting 70+ percent stenosis proven by IFR to 0% residual stenosis. TRANSINT:[id number] Voice Confirmation ID: [id number] DOCUMENT ID: [id number] KENDAL COTA MD at 1119 CC: [id number] DICTATION DATE: 08/20/18 1107 MERCHANDISE FOR RESALE PURCHASING AGENT: 08/20/18 1125 DIS IN 08/20/18 [place] [address]
--- NOTE | 2018-08-22 11:19 | ST ---
PATIENT:SALLY DIETZ MEDICAL RECORD: [id number] SEX: M [facility] #: ADMISSION DATE: 08/18/18 AGE OF PATIENT: 67 REFERRING PHYSICIAN: INTERPRETING PHYSICIAN: KENDAL COTA MD DATE OF SERVICE: 08/19/2018 PROCEDURE: Nuclear stress test. INDICATION: Chest pain, coronary artery disease. The patient was exercised on standard Lexiscan protocol with 31.3 mCi of sestamibi injected at peak stress for stress-only images. FINDINGS: Gated SPECT reveals preserved ejection fraction of 49% with good wall motioning and thickening and brightening throughout all segments. SPECT imaging Cardiolite was used as myocardial perfusion agent. There is homogeneous uptake throughout all segments with stress-only images with no evidence of inducible ischemia or previous infarction. OVERALL IMPRESSION: This is a normal stress-only Lexiscan stress test with homogeneous uptake throughout all segments at rest and stress and a preserved ejection fraction. TRANSINT:[id number] Voice Confirmation ID: [id number] DOCUMENT ID: [id number] KENDAL COTA MD at 1119 CC: [id number] DICTATION DATE: 08/19/18 1532 SUPERVISOR LABORATORY: 08/19/18 2138 DIS IN 08/20/18 [place] [id number] [place] [id number]
--- NOTE | 2018-08-22 11:19 | DS ---
PATIENT:SALLY NEAL :48 MEDICAL RECORD: [id number] DISCHARGE SUMMARY ADMISSION DATE: 08/18/18 DISCHARGE DATE: 08/20/18 DIAGNOSES: 1. Angina. 2. Coronary artery disease. 3. Percutaneous transluminal coronary angioplasty and stent to the left anterior descending this admission. HISTORY: Mr. Neal presents with anginal symptomatology, found to have flow-limiting stenosis of the LAD, underwent successful PTCA and stent of this territory. No further anginal symptomatology. Discharged home with the addition of aspirin and Plavix to his medical regimen. TRANSINT:[id number] Voice Confirmation ID: [id number] DOCUMENT ID: [id number] KENDAL COTA MD at 1119 CC: [id number] DICTATION DATE: 08/20/18 1107 INSPECTION MANAGER: 08/20/18 2316 DIS IN 08/20/18 [facility] [address] [place] [address]
--- NOTE | 2018-08-22 11:19 | PN ---
PATIENT:SALLY NEAL MEDICAL RECORD: [id number] [facility] ADMISSION DATE: 08/18/18 PROGRESS NOTE DATE OF SERVICE: 08/19/2018 Mr. Neal was admitted with chest pain and unstable angina. He underwent stress testing today, which was overall normal; however, he has continued to have his pain. He feels that it is escalating. We will give him morphine. His heart rate and blood pressure are optimal with systolic blood pressure of 114 and heart rate of 66. There is no other room to work with medical management at this time and he has continued to having chest pain and chest discomfort compatible with angina despite calcium channel blockade and Imdur. It is just like that of his previous heart pain when he has required stents; hence, despite the stress test being normal due to continued and increasing symptomatology, we will proceed with coronary angiography in the a.m. TRANSINT:[id number] Voice Confirmation ID: [id number] DOCUMENT ID: [id number] KENDAL COTA MD at 1119 CC: [id number] DICTATION DATE: 08/19/18 1537 FRONT DESK PERSON: 08/19/18 1641 DIS IN 08/20/18 [facility] [address] [place] [address]
== END 2018-08-20 15:10 | disposition home or self-care (01) ==
LOC: D.ER 18:14 → OBSVTIME 21:05 → D.M2 21:05 → D.CLR 08-20 11:15
PROVIDERS: Emergency Medicine; ADMIT Internal Medicine Interventional Cardiology; ATTEND Internal Medicine Interventional Cardiology
DX: I25.119 Atherosclerotic heart disease of native coronary artery with unspecified angina pectoris (principal); I10 Essential (primary) hypertension; E11.9 Type 2 diabetes mellitus without complications
CPT/HCPCS: 93458; 93571; C9600